=== PATIENT | male | born 1960 | race American Indian/Alaskan Native ===

== ENCOUNTER 2019-02-10 02:30 | Emergency (ER) | payer OTHER ==
--- NOTE | 2019-02-10 03:36 | XRay Report ---
CHEST 1 VIEW INDICATION / CLINICAL INFORMATION: SOB. COMPARISON: None available. FINDINGS: SUPPORT DEVICES: None. HEART / MEDIASTINUM: No significant abnormality. LUNGS / PLEURA: No significant pulmonary or pleural abnormality. No pneumothorax. ADDITIONAL FINDINGS: No significant additional findings. IMPRESSION: 1. No acute findings. Signer Name: Dileep Fuentes MD FACR Signed: 02/10/2019 3:31 AM Workstation Name: [id number]
[2019-02-10 04:00] LABS: Hematocrit 41.5 % (35.5-45.6); Hemoglobin 13.9 gm/dl (11.8-15.2); Mean Corpuscular HGB Conc 34 % (32-34); Mean Corpuscular Volume 92 fl (84-94); Platelet Count 355 K/mm3 (140-440); Red Blood Count 4.51 M/mm3 (3.65-5.03)
[2019-02-10 04:05] LABS: Alanine Aminotransferase 24 units/L (7-56); Albumin 3.7 g/dL (3.9-5); BUN/Creatinine Ratio 10; Blood Urea Nitrogen 8 mg/dL (9-20); Calcium 8.5 mg/dL (8.4-10.2); Hemolysis Index 17
[2019-02-10 04:41] LABS: Basophils # (Auto) 0.1 K/mm3 (0.0-0.1); Basophils % (Auto) 1.3 % (0.0-1.8); Eosinophils # (Auto) 0.3 K/mm3 (0.0-0.4); Lymphocytes # (Auto) 2.1 K/mm3 (1.2-5.4); Lymphocytes % (Auto) 32.5 % (13.4-35.0); Monocytes # (Auto) 0.6 K/mm3 (0.0-0.8); Monocytes % (Auto) 9.2 % (0.0-7.3)
[2019-02-10] MEDS ORDERED: PROVENTIL IH ONE (06:24)
[2019-02-10] MEDS ORDERED: ATROVENT IH ONE (06:24)
[2019-02-10] MEDS ORDERED: NACL 0.9% 500 ML 500 ML IV ONE (06:43)
--- NOTE | 2019-02-10 06:47 | Emergency Department Report ---
HPI - General Chief Complaint: Dyspnea/Respdistress Time Seen by Provider: 02/10/19 06:19 - HPI HPI: Room 23 The patient is a 4-year-old male presenting with chief complaint shortness of breath. The [place] he began to feel short of breath. Patient states it feels exactly like COPD exacerbations. Patient denies cough or fever. Patient received breathing treatment en route to the ED and states he feels slightly improved but still short of breath Location: [See above] Duration: [See above] Quality: [See above] Severity: [See above] Modifying factors: [see above] Context: [see above] Mode of transportation: [not driving] ED Past Medical Hx - Past Medical History Previous Medical History?: Yes Hx Hypertension: Yes Hx COPD: Yes (no home O2) Additional medical history: PTSD, BiPolar - Surgical History Past Surgical History?: No - Family History Family history: no significant - Social History Smoking Status: Current Some Day Smoker (Black and mild) Substance Use Type: Alcohol (occasional), Marijuana - Medications Home Medications: Home Medications Medication Instructions Recorded Confirmed Last Taken Type ALBUTEROL Inhaler (OR & NICU) 2 puff IH QID PRN #1 inhalation 02/10/19 Unknown Rx [Proair] Prednisone [predniSONE 10 mg 10 mg PO .TAPER #1 tab.ds.pk 02/10/19 Unknown Rx (6-Day Pack, 21 Tabs)] ED Review of Systems ROS: Stated complaint: SHORTNESS OF BREATH Other details as noted in HPI Constitutional: denies: fever Eyes: denies: eye pain ENT: denies: throat pain Respiratory: shortness of breath, wheezing. denies: cough Cardiovascular: denies: chest pain Endocrine: no symptoms reported Gastrointestinal: denies: abdominal pain Genitourinary: denies: dysuria Musculoskeletal: denies: back pain Neurological: denies: headache Physical Exam - Physical Exam Vital Signs: Vital Signs 02/10/19 02/10/19 02/10/19 02:52 02:53 03:00 Temperature 97.8 F Pulse Rate 78 79 82 Respiratory 16 15 Rate Blood Pressure 152/78 152/78 O2 Sat by Pulse 95 94 95 Oximetry 02/10/19 02/10/19 02/10/19 03:16 03:30 03:46 Temperature Pulse Rate 90 83 80 Respiratory 16 19 17 Rate Blood Pressure 154/87 154/87 149/70 O2 Sat by Pulse 94 95 93 Oximetry 02/10/19 02/10/19 04:00 05:00 Temperature Pulse Rate 78 92 H Respiratory 18 21 Rate Blood Pressure 131/68 131/68 O2 Sat by Pulse 90 93 Oximetry Physical Exam: GENERAL: The patient is well-developed well-nourished male sleeping on stretcher not appearing to be in acute distress. [] HEENT: Normocephalic. Atraumatic. Extraocular motions are intact. Patient has moist mucous membranes. NECK: Supple. Trachea midline CHEST/LUNGS: Diffuse wheezing. There is no respiratory distress noted. HEART/CARDIOVASCULAR: Regular. There is no tachycardia. There is no gallop rub or murmur. ABDOMEN: Abdomen is soft, nontender. Patient has normal bowel sounds. There is no abdominal distention. SKIN: There is no rash. There is no diaphoresis. NEURO: The patient is awake, alert, and oriented. The patient is cooperative. The patient has normal speech MUSCULOSKELETAL: There is no evidence of acute injury. ED Course Vital Signs 02/10/19 02/10/19 02/10/19 02:52 02:53 03:00 Temperature 97.8 F Pulse Rate 78 79 82 Respiratory 16 15 Rate Blood Pressure 152/78 152/78 O2 Sat by Pulse 95 94 95 Oximetry 02/10/19 02/10/19 02/10/19 03:16 03:30 03:46 Temperature Pulse Rate 90 83 80 Respiratory 16 19 17 Rate Blood Pressure 154/87 154/87 149/70 O2 Sat by Pulse 94 95 93 Oximetry 02/10/19 02/10/19 04:00 05:00 Temperature Pulse Rate 78 92 H Respiratory 18 21 Rate Blood Pressure 131/68 131/68 O2 Sat by Pulse 90 93 Oximetry - Reevaluation(s) Reevaluation #1: 02/10/19 09:25 Patient feels improved. Lungs clear to auscultation bilaterally ED Medical Decision Making - Lab Data Result diagrams: 02/10/19 03:22 02/10/19 03:22 Laboratory Tests 02/10/19 02/10/19 03:22 03:22 WBC 6.6 RBC 4.51 Hgb 13.9 Hct 41.5 MCV 92 MCH 31 MCHC 34 RDW 14.0 Plt Count 355 Lymph % (Auto) 32.5 [place] % (Auto) 9.2 H Eos % (Auto) 4.0 Baso % (Auto) 1.3 Lymph # 2.1 [place] # 0.6 Eos # 0.3 Baso # 0.1 Seg Neutrophils % 53.0 Seg Neutrophils # 3.5 Sodium 137 Potassium 3.9 Chloride 101.4 Carbon Dioxide 24 Anion Gap 16 BUN 8 L Creatinine 0.8 Estimated GFR > 60 BUN/Creatinine Ratio 10 Glucose 91 Calcium 8.5 Total Bilirubin 0.30 AST 25 ALT 24 Alkaline Phosphatase 64 Total Protein 6.1 L Albumin 3.7 L Albumin/Globulin Ratio 1.5 - EKG Data -: EKG Interpreted by Me EKG shows normal: sinus rhythm Rate: normal - EKG Data When compared to previous EKG there are: previous EKG unavailable Interpretation: nonspecific ST-T wave laura (T-wave inversions in leads aVL, V2) - Radiology Data Radiology results: report reviewed (chest x-ray), image reviewed (chest x-ray) interpreted by me: Chest x-ray-no focal infiltrates, [place] [address] XRay Report Signed Patient: TUAN GALINDO MR#: [id number] : 1960 Acct:[id number] Age/Sex: 58 / M ADM Date: 02/10/19 Loc: ED Attending Dr: Ordering Physician: LUCERO LUCAS MD Date of Service: 02/10/19 Procedure(s): XR chest 1V ap Accession Number(s): [id number] cc: ED MD SHAYY Fluoro Time In Minutes: CHEST 1 VIEW INDICATION / CLINICAL INFORMATION: SOB. COMPARISON: None available. FINDINGS: SUPPORT DEVICES: None. HEART / MEDIASTINUM: No significant abnormality. LUNGS / PLEURA: No significant pulmonary or pleural abnormality. No pneumothorax. ADDITIONAL FINDINGS: No significant additional findings. IMPRESSION: 1. No acute findings. Signer Name: Dileep Fuentes MD FACR Signed: 02/10/2019 3:31 AM Workstation Name: [id number] Transcribed By: MS Dictated By: Dileep Fuentes MD Electronically Authenticated By: Dileep Fuentes MD Signed Date/Time: 02/10/19330 DD/ 0 TD/TT: - Differential Diagnosis COPD exacerbation, bronchitis, pneumonia Critical care attestation.: If time is entered above; I have spent that time in minutes in the direct care of this critically ill patient, excluding procedure time. ED Disposition Clinical Impression: Shortness of breath, COPD exacerbation Disposition: TO HOME OR SELFCARE Is pt being admited?: No Does the pt Need Aspirin: No Condition: Stable Instructions: Chronic Obstructive Pulmonary Disease (ED) Additional Instructions: Return to the emergency department immediately should you develop worsening symptoms, fever, inability to tolerate food or liquid or any other concerns. Prescriptions: Prednisone [predniSONE 10 mg (6-Day Pack, 21 Tabs)] 10 mg PO .TAPER #1 tab.ds.pk ALBUTEROL Inhaler (OR & NICU) [Proair] 2 puff IH QID PRN #1 inhalation PRN Reason: Shortness Of Breath Referrals: [facility] [Other] - 3-5 Days Time of Disposition: 09:27
[2019-02-10 06:58] VITALS: BP 128/72
== END 2019-02-10 09:47 | disposition home or self-care (01) ==
LOC: ED 02:30
DX: J44.1 Chronic obstructive pulmonary disease with (acute) exacerbation (principal); I10 Essential (primary) hypertension; F31.9 Bipolar disorder, unspecified; F17.200 Nicotine dependence, unspecified, uncomplicated; F10.10 Alcohol abuse, uncomplicated; F12.90 Cannabis use, unspecified, uncomplicated; Z79.899 Other long term (current) drug therapy
CPT/HCPCS: 36415; 71045; 80053; 85025; 93005; 93010; 94640; 99284; J7040; 94644